=== PATIENT | female | born 2000 | race African-American/Black ===

== ENCOUNTER 2019-08-29 20:51 | Emergency (ER) | payer SELFPAY ==
[~2019-08-29] VITALS: Ht 165.1 cm; Wt 61.2 kg
--- OUTSIDE RECORDS SUMMARY | 2019-08-29 20:53 | XMS REPORT | Summary of Care ---
Author Author [facility] Organization [facility] Address Unknown Phone Unavailable Encounter VITO Dietrich(JONNA) [id number] Date(s): 06/06/16 - 06/06/16 [facility] [address] [place] [address]- Discharge Diagnosis: False labor Discharge Disposition: Home or Self Care Attending Physician: Maryellen English MD Vital Signs Most recent to 1 2 oldest [Reference Range]: Height 165.1 cm (06/06/16 9:31 PM) Blood Pressure 110/66 mmHg 110/66 mmHg [90-140/60-90 mmHg] (06/06/16 9:31 PM) (06/06/16 9:16 PM) Respiratory Rate 19 BRMIN 19 BRMIN [14-20 BRMIN] (06/06/16 9:31 PM) (06/06/16 9:16 PM) Peripheral Pulse 97 bpm 85 bpm Rate [60-100 bpm] (06/06/16 9:31 PM) (06/06/16 9:16 PM) Weight 54.545 kg (06/06/16 9:31 PM) Body Mass Index 20.01 m2 (06/06/16 9:31 PM) Problem List Condition Effective Dates Status Health Status Informan t Anxiety(Confirmed) Resolved Placenta 2017 Active previa(Confirmed) (Confirmed) Active ( ) 12/17/15 Active Allergies, Adverse Reactions, Alerts Substance Reaction Severity Status NKDA Active Medications Lactated Ringers (Bolus) IV 1,000 mL, 1,000 ml/hr, Infuse Over: 1 hr, Route: IV, 1,000, Drug form: INJ, ONCE , Priority: STAT, Dosing Weight 54.545 kg, Start date: 06/06/16 21:49:00 FIXTURE DESIGNER, Du ration: 1 doses or times, Stop date: 06/06/16 21:49:00 FIXTURE DESIGNER Start Date: 06/06/16 Stop Date: 06/06/16 Status: Completed Results BLOOD BANK RESULTS Most recent to 1 oldest [Reference Range]: ABO/Rh A POS *Unknown* (06/06/16 10:09 PM) Antibody Scrn Negative (06/06/16 10:09 PM) ELECTROLYTES Most recent to 1 oldest [Reference Range]: Sodium Lvl [135-145 140 mEq/L mEq/L] (06/06/16 10:09 PM) Potassium Lvl 3.6 mEq/L [3.5-5.1 mEq/L] (06/06/16 10:09 PM) Chloride Lvl [95-109 109 mEq/L mEq/L] (06/06/16 10:09 PM) CO2 [24-32 mEq/L] 22 mEq/L *LOW* (06/06/16 10:09 PM) AGAP [10.0-20.0 12.6 mEq/L mEq/L] (06/06/16 10:09 PM) CHEM PANEL Most recent to 1 oldest [Reference Range]: Creatinine Lvl 0.50 mg/dL [0.50-1.40 mg/dL] (06/06/16 10:09 PM) eGFR 163 mL/min/1.73m2 1 *NA* (06/06/16 10:09 PM) BUN [7-22 mg/dL] 6 mg/dL *LOW* (06/06/16 10:09 PM) B/C Ratio [6-25] 12 (06/06/16 10:09 PM) Glucose Lvl [70-99 92 mg/dL mg/dL] (06/06/16 10:09 PM) Total Protein 6.5 g/dL [6.4-8.4 g/dL] (06/06/16 10:09 PM) Albumin Lvl [3.5-5.0 2.8 g/dL g/dL] *LOW* (06/06/16 10:09 PM) Globulin [2.7-4.2 3.7 g/dL g/dL] (06/06/16 10:09 PM) A/G Ratio [0.7-1.6] 0.8 (06/06/16 10:09 PM) Calcium Lvl 8.4 mg/dL [8.5-10.5 mg/dL] *LOW* (06/06/16 10:09 PM) ALT [0-65 unit/L] 16 unit/L (06/06/16 10:09 PM) AST [0-37 unit/L] 21 unit/L (06/06/16 10:09 PM) Alk Phos [39-136 58 unit/L unit/L] (06/06/16 10:09 PM) Bili Total [0.2-1.3 0.2 mg/dL mg/dL] (06/06/16 10:09 PM) 1Result Comment: The eGFR is calculated using the CKD-EPI formula. In most young, healthy individuals the eGFR will be >90 mL/min/1.73m2. The eGFR declines with age. An eGFR of 60-89 may be normal in some populations, particularly the elderly, for whom the CKD-EPI formula has not been extensively validated. Use of the eGFR is not recommended in the following populations: Individuals with unstable creatinine concentrations, including patients and those with serious co-morbid conditions. Patients with extremes in muscle mass or diet. The data above are obtained from the National Kidney Disease Education Program ( NKDEP) which additionally recommends that when the eGFR is used in patients with extremes of body mass index for purposes of drug dosing, the eGFR should be mul tiplied by the estimated BMI. URINE AND STOOL Most recent to 1 oldest [Reference Range]: UA Turbidity [Clear] Moderate *ABN* (06/06/16 9:31 PM) UA Color [Yellow] Light Yellow *NA* (06/06/16 9:31 PM) UA pH [5.0-8.0] 7.0 (06/06/16 9:31 PM) UA Spec Grav 1.018 [<=1.030] (06/06/16 9:31 PM) UA Glucose [Negative Negative mg/dL mg/dL] *NA* (06/06/16 9:31 PM) UA Blood [Negative] Negative (06/06/16 9:31 PM) UA Ketones [Negative Negative mg/dL mg/dL] *NA* (06/06/16 9:31 PM) UA Protein [Negative Negative mg/dL mg/dL] (06/06/16 9:31 PM) UA Urobilinogen <=1.0 mg/dL [0.1-1.0 mg/dL] *NA* (06/06/16 9:31 PM) UA Bili [Negative] Negative *NA* (06/06/16 9:31 PM) UA Leuk Est Moderate [Negative] *ABN* (06/06/16 9:31 PM) UA Nitrite Negative [Negative] (06/06/16 9:31 PM) UA WBC [0-5 /HPF] 4 /HPF (06/06/16 9:31 PM) UA RBC [0-2 /HPF] 1 /HPF (06/06/16 9:31 PM) UA Bacteria [None Occasional /HPF Seen /HPF] *NA* (06/06/16 9:31 PM) UA Sq Epi [Few /LPF] Moderate /LPF *ABN* (06/06/16 9:31 PM) UA Mucus [None Seen Few /LPF /LPF] *NA* (06/06/16 9:31 PM) HEMATOLOGY Most recent to 1 oldest [Reference Range]: WBC [3.7-10.4 K/CMM] 6.2 K/CMM (06/06/16 10:09 PM) RBC [4.20-5.40 3.47 M/CMM M/CMM] *LOW* (06/06/16 10:09 PM) Hgb [12.0-16.0 g/dL] 10.6 g/dL *LOW* (06/06/16 10:09 PM) Hct [36.0-48.0 %] 31.1 % *LOW* (06/06/16 10:09 PM) MCV [80.0-98.0 fL] 89.6 fL (06/06/16 10:09 PM) MCH [27.0-31.0 pg] 30.6 pg (06/06/16 10:09 PM) MCHC [32.0-36.0 34.1 g/dL g/dL] (06/06/16 10:09 PM) RDW [11.5-14.5 %] 14.1 % (06/06/16 10:09 PM) Platelet [133-450 229 K/CMM K/CMM] (06/06/16 10:09 PM) MPV [7.4-10.4 fL] 8.3 fL (06/06/16 10:09 PM) Segs [45.0-75.0 %] 52.0 % (06/06/16 10:09 PM) Lymphocytes 34.1 % [20.0-40.0 %] (06/06/16 10:09 PM) Monocytes [2.0-12.0 9.1 % %] (06/06/16 10:09 PM) Eosinophils [0.0-4.0 4.2 % %] *HI* (06/06/16 10:09 PM) Basophils [0.0-1.0 0.6 % %] (06/06/16 10:09 PM) Segs-Bands # 3.2 K/CMM [1.5-8.1 K/CMM] (06/06/16 10:09 PM) Lymphocytes # 2.1 K/CMM [1.0-5.5 K/CMM] (06/06/16 10:09 PM) Monocytes # [0.0-0.8 0.6 K/CMM K/CMM] (06/06/16 10:09 PM) Eosinophils # 0.3 K/CMM [0.0-0.5 K/CMM] (06/06/16 10:09 PM) Basophils # [0.0-0.2 0.0 K/CMM K/CMM] (06/06/16 10:09 PM) Immunizations No data available for this section Procedures No data available for this section Social History Social History Type Response Substance Abuse Use: None. Sexual Sexually active: Yes. Employment/School Status: Student. Alcohol Never Smoking Status Never smoker; Ready to [employer] ge: No; Concerns about tobacco use in household: No; Exposure to Tobacco Smoke None; Cig arette Smoking Last 365 Days No; Reg Smoking Cessation Counseling No Assessment and Plan No data available for this section
--- OUTSIDE RECORDS SUMMARY | 2019-08-29 20:53 | XMS REPORT | Summary of Care ---
Author Author [facility] Organization [facility] Address Unknown Phone Unavailable Encounter VITO Dietrich(JONNA) [id number] Date(s): 12/26/16 - 12/26/16 [facility] [address] [place] [address]- Discharge Diagnosis: Abdominal pain of unknown etiology Discharge Disposition: Home or Self Care Attending Physician: Benoit Jennings MD Vital Signs 1 2 3 Most recent to oldest [Reference Range]: 165.1 cm (12/26/16 1:33 PM) Height 98.2 DegF (12/26/16 4:29 PM) 98.1 DegF (12/26/16 3:43 PM) 100.0 DegF *HI* (12/26/16 1:33 PM) Temperature Oral [96.4-99.1 DegF] 103/74 mmHg (12/26/16 4:29 PM) 104/70 mmHg (12/26/16 3:43 PM) 106/67 mmHg (12/26/16 2:30 PM) Blood Pressure [90-140/60-90 mmHg] 18 BRMIN (12/26/16 4:29 PM) 18 BRMIN (12/26/16 3:43 PM) 18 BRMIN (12/26/16 2:30 PM) Respiratory Rate [14-20 BRMIN] 99 bpm (12/26/16 1:33 PM) Peripheral Pulse Rate [60-100 bpm] 53.267 kg (12/26/16 1:33 PM) Weight 19.54 m2 (12/26/16 1:33 PM) Body Mass Index Problem List Condition Effective Dates Status Health Status Informan t Anxiety(Confirmed) Resolved Placenta 2017 Active previa(Confirmed) (Confirmed) Active ( ) 12/17/15 - 10/30/16 Resolved 9:47 AM Allergies, Adverse Reactions, Alerts Substance Reaction Severity Status NKDA Active Medications metoclopramide 10 mg, 2 mL, Route: IVP, Drug form: INJ, ONCE, Dosing Weight 54.545, kg, Priorit y: STAT, Start date: 12/26/16 13:38:00 CDT, Stop date: 12/26/16 13:38:00 CDT Notes: (Same as: Reglan) Start Date: 12/26/16 Stop Date: 12/26/16 Status: Completed Saline Flush 0.9% 10 mL, Route: IVP, Drug Form: INJ, Dosing Weight 54.545, kg, PRN, PRN Line Flush , Start date: 12/26/16 13:38:00 CDT, Duration: 30 day, Stop date: 01/25/17 13:37 :00 CDT Notes: (Same as: BD Posiflush) Start Date: 12/26/16 Stop Date: 12/26/16 Status: Discontinued Sodium Chloride 0.9% (Bolus) IV 1,000 mL, 2,000 ml/hr, Infuse Over: 30 minutes, Route: IV, 1,000, Drug form: INJ , ONCE, Priority: STAT, Dosing Weight 54.545 kg, Start date: 12/26/16 13:38:00 C DT, Duration: 1 doses or times, Stop date: 12/26/16 13:38:00 CDT Start Date: 12/26/16 Stop Date: 12/26/16 Status: Completed Tylenol 650 mg, 2 tab, Route: PO, Drug form: TAB, ONCE, Dosing Weight 54.545, kg, Priori ty: STAT, Start date: 12/26/16 13:39:00 CDT, Stop date: 12/26/16 13:39:00 CDT Notes: Do not exceed 4 gm/day. (Same as: Tylenol) Start Date: 12/26/16 Stop Date: 12/26/16 Status: Completed Results ELECTROLYTES Most recent to 1 oldest [Reference Range]: Sodium Lvl [135-145 137 mEq/L mEq/L] (12/26/16 2:17 PM) Potassium Lvl 3.5 mEq/L [3.5-5.1 mEq/L] (12/26/16 2:17 PM) Chloride Lvl [95-109 106 mEq/L mEq/L] (12/26/16 2:17 PM) CO2 [24-32 mEq/L] 24 mEq/L (12/26/16 2:17 PM) AGAP [10.0-20.0 10.5 mEq/L mEq/L] (12/26/16 2:17 PM) CHEM PANEL Most recent to 1 oldest [Reference Range]: Creatinine Lvl 0.61 mg/dL [0.50-1.40 mg/dL] (12/26/16 2:17 PM) eGFR 153 mL/min/1.73m2 1 *NA* (12/26/16 2:17 PM) BUN [7-22 mg/dL] 14 mg/dL (12/26/16 2:17 PM) B/C Ratio [6-25] 23 (12/26/16 2:17 PM) Glucose Lvl [70-99 85 mg/dL mg/dL] (12/26/16 2:17 PM) Total Protein 7.2 g/dL [6.4-8.4 g/dL] (12/26/16 2:17 PM) Albumin Lvl [3.5-5.0 3.4 g/dL g/dL] *LOW* (12/26/16 2:17 PM) Globulin [2.7-4.2 3.8 g/dL g/dL] (12/26/16 2:17 PM) A/G Ratio [0.7-1.6] 0.9 (12/26/16 2:17 PM) Calcium Lvl 8.5 mg/dL [8.5-10.5 mg/dL] (12/26/16 2:17 PM) ALT [0-65 unit/L] 9 unit/L (12/26/16 2:17 PM) AST [0-37 unit/L] 11 unit/L (12/26/16 2:17 PM) Alk Phos [39-136 75 unit/L unit/L] (12/26/16 2:17 PM) Bili Total [0.2-1.3 0.5 mg/dL mg/dL] (12/26/16 2:17 PM) 1Result Comment: The eGFR is calculated [...] be mul tiplied by the estimated BMI. ENDOCRINOLOGY Most recent to 1 oldest [Reference Range]: S Preg [Negative] Negative *NA* (12/26/16 2:17 PM) URINE AND STOOL Most recent to 1 oldest [Reference Range]: UA Turbidity [Clear] Clear (12/26/16 2:17 PM) UA Color [Yellow] Yellow *NA* (12/26/16 2:17 PM) UA pH [5.0-8.0] 6.0 (12/26/16 2:17 PM) UA Spec Grav 1.025 [<=1.030] (12/26/16 2:17 PM) UA Glucose [Negative Negative mg/dL mg/dL] *NA* (12/26/16 2:17 PM) UA Blood [Negative] Negative (12/26/16 2:17 PM) UA Ketones [Negative Negative mg/dL mg/dL] *NA* (12/26/16 2:17 PM) UA Protein [Negative Negative mg/dL mg/dL] (12/26/16 2:17 PM) UA Urobilinogen <=1.0 mg/dL [0.1-1.0 mg/dL] *NA* (12/26/16 2:17 PM) UA Bili [Negative] Negative *NA* (12/26/16 2:17 PM) UA Leuk Est Negative [Negative] (12/26/16 2:17 PM) UA Nitrite Negative [Negative] (12/26/16 2:17 PM) UA WBC [0-5 /HPF] <1 /HPF (12/26/16 2:17 PM) UA RBC [0-2 /HPF] 2 /HPF (12/26/16 2:17 PM) UA Sq Epi [Few /LPF] Occasional /LPF *NA* (12/26/16 2:17 PM) UA Mucus [None Seen Few /LPF /LPF] *NA* (12/26/16 2:17 PM) HEMATOLOGY Most recent to 1 oldest [Reference Range]: WBC [3.7-10.4 K/CMM] 9.2 K/CMM (12/26/16 2:17 PM) RBC [4.20-5.40 4.26 M/CMM M/CMM] (12/26/16 2:17 PM) Hgb [12.0-16.0 g/dL] 12.3 g/dL (12/26/16 2:17 PM) Hct [36.0-48.0 %] 36.5 % (12/26/16 2:17 PM) MCV [80.0-98.0 fL] 85.7 fL (12/26/16 2:17 PM) MCH [27.0-31.0 pg] 28.9 pg (12/26/16 2:17 PM) MCHC [32.0-36.0 33.7 g/dL g/dL] (12/26/16 2:17 PM) RDW [11.5-14.5 %] 16.1 % *HI* (12/26/16 2:17 PM) Platelet [133-450 235 K/CMM K/CMM] (12/26/16 2:17 PM) MPV [7.4-10.4 fL] 8.5 fL (12/26/16 2:17 PM) Segs [45.0-75.0 %] 69.1 % (12/26/16 2:17 PM) Lymphocytes 16.7 % [20.0-40.0 %] *LOW* (12/26/16 2:17 PM) Monocytes [2.0-12.0 11.6 % %] (12/26/16 2:17 PM) Eosinophils [0.0-4.0 2.1 % %] (12/26/16 2:17 PM) Basophils [0.0-1.0 0.5 % %] (12/26/16 2:17 PM) Segs-Bands # 6.3 K/CMM [1.5-8.1 K/CMM] (12/26/16 2:17 PM) Lymphocytes # 1.5 K/CMM [1.0-5.5 K/CMM] (12/26/16 2:17 PM) Monocytes # [0.0-0.8 1.1 K/CMM K/CMM] *HI* (12/26/16 2:17 PM) Eosinophils # 0.2 K/CMM [0.0-0.5 K/CMM] (12/26/16 2:17 PM) Immunizations No data available for this [...]
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
--- OUTSIDE RECORDS SUMMARY | 2019-08-29 20:53 | XMS REPORT ---
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 *NA*(12/26/16 2:17 PM)[facility] HospitalUjkfnmcxrLGFJUTGNLC5618-34-93 19:17:0033.7[facility] HospitalWexhwmjiqPCSKZIMCRB3543-67-17 19:17:00* Test Item Value Reference Range Interpretation Comments [facility] (test code = MCH) 28.9 pg 27.0-31.0 YzwbuwjixPKSRFAUXJS7882-60-91 19:17:0085.7 LyztdnihsMTLRMOUVSR1240-09-25 19:17:0016.1M XibccjcniHTSJHBKLBS3619-01-11 19:17:0036.5 [facility] 2016-12-26 19:17:15624JM WpymcyknxSRHXEDBLAW6035-05-64 19:17:008.5[facility] PBAVGDAQFB1667-97-94 19:17:009.2M XabooecbtRUYPKJQFQX4207-54-99 19:17:0012.3M JxxvfgpwiZZNTWPDHOF6348-88-59 19:17:004.26 GecbtzakwEYHWVJESFP4435-63-49 19:17:000.5 QenyesnwxRSBLNQMFKW3167-73-22 19:17:001.[facility] 2016-12-26 19:17:001.5 XhhxjnqtgSICBWTAARJ7186-49-47 19:17:006.3[facility] HHXTDHAQMB0878-34-49 19:17:002.1M WpianernnVZSZYWKHUK0209-26-57 19:17:000.2M TkjpwjjvrHRTWBBQTUV5703-42-25 19:17:0016.7 ZxkxxtvonCPCXRLPBKT6459-19-22 19:17:0069.[facility] ZrhmxbzuyGUNLXPSUZM1495-60-60 19:17:0011.6M [facility] UPRJP4334-10-19 19:17:002 [facility] KGQBW9131-27-69 19:17:00<1M [facility] QJHMU8985-15-63 19:17:00Negative (12/26/16 2:17 PM) [facility] CEGYU4623-09-28 19:17:00Yellow *NA*(12/26/16 2:17 PM) [facility] EJRAH9496-07-64 19:17:00Clear (12/26/16 2:17 PM) [facility] ZBTRB6165-08-35 19:17:006.0 [facility] GHMOD3050-82-30 19:17:001.025 [facility] SQBLP0833-87-27 19:17:00Negative *NA*(12/26/16 2:17 PM) [facility] TAJWW7129-73-68 19:17:00Negative (12/26/16 2:17 PM) [facility] EMGQP7967-35-32 19:17:00Negative (12/26/16 2:17 PM)[facility] DWLRIKU3236-00-39 04:09:00Negative (06/06/16 10:09 PM) [facility] FQMLG2577-67-18 04:09:003.7 [facility] YHCEQ8220-71-65 04:09:0012 [facility] VBAAD0561-64-33 04:09:0012.6M [facility] PANEL 2016-06-07 04:09:000.8 [facility] JCFLS2694-47-74 04:09:21059DR [facility] SENVE7276-51-27 04:09:0058 [facility] WEWFI2832-81-13 04:09:000.2M [facility] XXAKP1493-48-09 04:09:60522ZP [facility] YNITO1494-80-81 04:09:003.6M [facility] XWPLY7775-15-03 04:09:63169VA [facility] PANEL 2016-06-07 04:09:0022MH [facility] POBQE6847-93-45 04:09:000.50 [facility] NUJTJ7910-98-69 04:09:0016 [facility] LWFXP9161-42-83 04:09:002.8 [facility] UXOUA4078-53-84 04:09:006.5 [facility] PXFPD8807-94-06 04:09:0021MH [facility] QBVEN1167-29-42 04:09:008.4 [facility] PANEL 2016-06-07 04:09:0092 [facility] BCIDN2123-47-55 04:09:006MH [facility] XCDVBYIWBU3884-30-82 04:09:003.2M AyglzwbuyIIKGONONOM1992-88-08 04:09:0052.0 FhhyjgnwvZHLHXSWOAB2153-12-21 04:09:0034.1M DhpehhoqvNPLKGTUTRF7181-75-89 04:09:004.2M AacrshswuNZNLYGSKKG9543-76-54 04:09:000.6M [facility] 2016-06-07 04:09:009.1M BazhoxmmdJKCJOYWXWJ8035-43-57 04:09:000.6MH [facility] FYZDNIVIVH6660-55-03 04:09:000.3ME[facility] CenterFaediclbjHXSVRROKSA2415-59-62 04:09:002.1ME[facility] CenterBxtqoesjjMEUNIZFXRN6792-51-21 04:09:000.0[facility] CenterXbtxbpulhOKRRKYWZVN2604-97-70 04:09:0031.1ME[facility] CenterYqapvvwkyJJNIQSGMCO1007-58-20 04:09:0089.6[facility] CenterHEMATOLOGY 2016-06-07 04:09:0010.6MEden [facility] CenterYvllodrayVQHZQQULHG3119-43-73 04:09:008.3[facility] HNATXIJKXD0068-82-28 04:09:84123LLSan [facility]on Regional Medical CenterLaqtiddxwOOFLSKKNGO5732-23-15 04:09:0034.1MEden [facility] CenterSdrbezqulMJYWLMEOAH9134-17-22 04:09:00* Test Item Value Reference Range Interpretation Comments [facility] (test code = MCH) 30.6 pg 27.0-31.0 [facility] CenterSfrdlwijmWKOUCKFAJV4724-96-51 04:09:0014.1MEden [facility] CenterKmmrthmjhYKPFASTYZB3684-13-53 04:09:006.2MEden [facility] CenterOzlnpsczhLAXAEVVTEF8197-80-93 04:09:003.47 [facility] UFFKE0232-53-28 03:31:00<=1.0MH [facility] LKNXI3421-70-66 03:31:001 [facility] TRSBO7905-15-09 03:31:001.018 [facility] STOOL 2016-06-07 03:31:007.0 [facility] PXGVJ6832-41-09 03:31:00Moderate *ABN*(06/06/16 9:31 PM) [facility] NQOBE0898-24-83 03:31:00Light Yellow *NA*(06/06/16 9:31 PM) [facility] HVXRI8264-17-86 03:31:00Negative (06/06/16 9:31 PM) [facility] AERYC1597-05-97 03:31:00Moderate *ABN*(06/06/16 9:31 PM) [facility] ABPTH8096-21-21 03:31:004 [facility] XWGHK7595-72-28 03:31:00Negative (06/06/16 9:31 PM) [facility] QUOGD3674-17-59 03:31:00Negative *NA*(06/06/16 9:31 PM)LYNETTE [facility] CHEM 2015-09-23 21:06:00Negative (09/23/15 4:06 PM)[facility]
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
--- NOTE | 2019-08-29 21:42 | Emergency Department Note ---
History of Present Illnes History of Present Illness Chief Complaint: Abdominal Complaints History of Present Illness This is a 19 year old female PRESENTS TO THE ER C/O SUPRAPUBIC ABD PAIN RADIATING TO LLQ ONSET THIS AFTERNOON AROUND 1500; PT ALSO REPORTS URINARY FREQUENCY AND HEMATURIA ONSET X2 HRS DISABILITY REPRESENTATIVE; PT STATES SHE WAS AT HOSPITAL LAST WEEK AND TOLD THERE WAS NOTHING WRONG AND PRESCRIBED TORADOL. Historian: Patient Arrival Mode: Car Onset (how long ago): hour(s) (6) Location: suprapubic Quality: pain suprapubic, dysuria and frequency Radiation: non-radiation Severity: moderate Onset quality: sudden Duration (how long): hour(s) (6) Timing of current episode: constant Progression: unchanged Chronicity: new Context: recent illness Relieving factors: none Exacerbating factors: other (urination) Associated symptoms: denies other symptoms Past Medical/Family History Physician Review I have reviewed the patient's past medical and family history. Any updates have been documented here. Past Medical History Recent Fever: No Clinical Suspicion of Infectio: No New/Unexplained Change in Ment: No Past Medical History: Anxiety, Depression, Other Mental Illness Other Medical History: BIPOLAR Social History Smoking Cessation: Never Smoker Alcohol Use: None Any Illegal Drug Use: No Other Last Tetanus: UTD Review of Systems Review of Systems Constitutional: no symptoms EENTM: no symptoms Cardiovascular: no symptoms Respiratory: no symptoms Gastrointestinal: no symptoms Genitourinary: as per HPI Musculoskeletal: no symptoms Neurological: no symptoms Psychological: no symptoms Endocrine: no symptoms Hematological/Lymphatic: no symptoms Review of other systems All other systems reviewed and negative. Physical Exam Related Data Allergies: Coded Allergies: No Known Allergies (Unverified , 08/29/19) Triage Vital Signs Vital Signs Date Time Temp Pulse Resp B/P (MAP) Pulse Ox O2 Delivery O2 Flow Rate FiO2 08/29/19 21:22 99.4 91 20 112/87 100 Vital signs reviewed: Yes Physical Exam CONSTITUTIONAL Constitutional: well-developed, well-nourished HENT HENT: normocephalic, atraumatic, oropharynx clear/moist, nose normal HENT L/R: left ext ear normal, right ext ear normal EYES Eyes: PERRL, conjunctivae normal NECK Neck: ROM normal PULMONARY Pulmonary: effort normal, breath sounds normal CARDIOVASCULAR Cardiovascular: regular rhythm, heart sounds normal, capillary refill normal, normal rate GASTROINTESTINAL Abdominal: soft, bowel sounds normal, tender (mild supra pubic) GENITOURINARY Genitourinary: exam deferred SKIN Skin: warm, dry MUSCULOSKELETAL Musculoskeletal: ROM normal NEUROLOGICAL Neurological: alert, oriented x 3, no gross motor or sensory deficits PSYCHOLOGICAL Psychological: mood/affect normal, judgement normal Results Laboratory Laboratory Laboratory Tests Test 08/29/19 21:32 Urine Color Yellow (YELLOW) Urine Clarity Hazy (CLEAR) Urine pH 6 (5 - 7) Urine Specific [place] 1.030 (1.010-1.025) Urine Protein >=300 (NEGATIVE) Urine Glucose (UA) Negative (NEGATIVE) Urine Ketones Negative (NEGATIVE) Urine Blood Large (NEGATIVE) Urine Nitrite Negative (NEGATIVE) Urine Bilirubin Negative (NEGATIVE) Urine Urobilinogen 0.2 mg/dL (0.2 - 1) Urine Leukocyte Esterase Moderate (NEGATIVE) Urine RBC 21-50 /HPF (0-5) Urine WBC 11-20 /HPF (0-5) Urine Epithelial Cells None /LPF (NONE) Urine Bacteria Many /HPF (NONE) Urine Test Negative (NEGATIVE) Lab results reviewed: Yes Critical Care Time Subsequent provider I assumed direction of critical care for this patient from another provider of my specialty. Assessment & Plan Assessment & Plan Final Impression: (1) UTI (urinary tract infection) Assessment & Plan pt with suprapubic pain and urinary symptoms, ua ordered to eval for uti toradol 60 mg im ordered pt found to have uti omnicef 300 mg po bid for 1 days pyridium 200 mg po tid #9 Last Vital Signs Date Time Temp Pulse Resp B/P (MAP) Pulse Ox O2 Delivery O2 Flow Rate FiO2 08/29/19 21:22 99.4 91 20 112/87 100 EDWINA HSU MD August 29, 2019 21:42
[2019-08-29] MEDS ORDERED: KETOROLAC TROMETHAMINE 60 MG/2 ML VIAL IM ONE (21:45)
[2019-08-29 21:52] LABS: BILIRUBIN,URINE NEGATIVE (NEGATIVE); CLARITY,URINE HAZY (CLEAR); COLOR,URINE YELLOW (YELLOW); KETONES,URINE NEGATIVE (NEGATIVE); LEUKOCYTE ESTERASE ,URINE MODERATE (NEGATIVE); NITRITE,URINE NEGATIVE (NEGATIVE); PREGNANCY TEST, URINE NEGATIVE (NEGATIVE); PROTEIN,URINE DIPSTICK >=300 (NEGATIVE); URINE UROBILINOGEN 0.2 mg/dL (0.2 - 1)
[2019-08-29 22:10] LABS: BACTERIA,URINE MANY /HPF; RBC,URINE 21-50 /HPF (0-5)
== END 2019-08-29 23:01 | disposition home or self-care (01) ==
LOC: ER 20:51
DX: R10.32 Left lower quadrant pain (principal); R30.0 Dysuria; R31.9 Hematuria, unspecified; N39.0 Urinary tract infection, site not specified; F41.9 Anxiety disorder, unspecified; F31.9 Bipolar disorder, unspecified
CPT/HCPCS: 81001; 81025; 96372; 99283; J1885

== ENCOUNTER 2020-03-18 04:47 | Observation (INO) | payer SELFPAY ==
[~2020-03-18] VITALS: Ht 165.1 cm; Wt 59.9 kg
[2020-03-18] MEDS ORDERED: ACETAMINOPHEN 325 MG TAB PO STA (05:21)
[2020-03-18] MEDS ORDERED: SODIUM CHLORIDE 0.9% 1000ML 1,000 ML ONE (05:22)
[2020-03-18] MEDS: SODIUM CHLORIDE 0.9% 1000ML 1,000 ML IV SCH ×2 (05:25→12:27)
[2020-03-18 05:49] LABS: BASOPHILS # (AUTO) 0.1 (0.0-0.1); BASOPHILS % 0.4 % (0.0-1.0); HEMATOCRIT 37.3 % (34.2-44.1); HEMOGLOBIN 12.6 g/dL (12.0-16.0); LYMPHOCYTES # (AUTO) 2.3 (1.0-3.2); LYMPHOCYTES % 17.4 % (18.0-39.1); MEAN CORPUSCULAR HEMOGLOBIN 29.5 pg (28-32); MEAN CORPUSCULAR HGB CONC 33.8 g/dL (31-35); MEAN CORPUSCULAR VOLUME 87.4 fL (81-99); MONOCYTES # (AUTO) 1.5 (0.2-0.8); MONOCYTES % 11.4 % (4.4-11.3); NEUTROPHILS # (AUTO) 9.2 (2.1-6.9); NEUTROPHILS % 70.3 % (38.7-80.0); PLATELET COUNT 239 x10e3/uL (140-360); RED BLOOD COUNT 4.27 x10e6/uL (3.6-5.1); RED CELL DISTRIBUTION WIDTH 13.1 % (11.7-14.4)
[2020-03-18 06:18] LABS: ALANINE AMINOTRANSFERASE 59 IU/L (0-55); ALKALINE PHOSPHATASE 66 IU/L (40-150); ANION GAP 17.2 mmol/L (8-16); BLOOD UREA NITROGEN 9 mg/dL (7-26); BUN/CREATININE RATIO 11 (6-25); CALCIUM 9.4 mg/dL (8.4-10.2); CARBON DIOXIDE 17 mmol/L (22-29); CHLORIDE 105 mmol/L (98-107); CREATININE, SERUM 0.83 mg/dL (0.57-1.11); EST GLOMERULAR FILTRATION RATE > 60 ML/MIN (60-); GLUCOSE 148 mg/dL (74-118); POTASSIUM 3.2 mmol/L (3.5-5.1); SODIUM 136 mmol/L (136-145)
[2020-03-18 06:19] LABS: ALBUMIN/GLOBULIN RATIO 0.1 (0.8-2.0)
[2020-03-18 06:40] LABS: ALBUMIN 3.7 g/dL (3.5-5.0)
[2020-03-18 06:49] LABS: AMPHETAMINES SCREEN,URINE NEGATIVE (NEGATIVE); BENZODIAZEPINES SCREEN,URINE NEGATIVE (NEGATIVE); PHENCYCLIDINE SCREEN,URINE NEGATIVE (NEGATIVE)
[2020-03-18 06:54] LABS: CLARITY,URINE CLEAR (CLEAR); COLOR,URINE YELLOW (YELLOW); KETONES,URINE >=160 (NEGATIVE); LEUKOCYTE ESTERASE ,URINE NEGATIVE (NEGATIVE); NITRITE,URINE NEGATIVE (NEGATIVE); PROTEIN,URINE DIPSTICK 1+ (NEGATIVE); URINE UROBILINOGEN 8 mg/dL (0.2 - 1)
[2020-03-18 07:07] LABS: STREPTOCOCCUS GRP A ANTIGEN NEGATIVE (NEGATIVE)
[2020-03-18 07:10] LABS: EPITHELIAL CELLS,URINE MODERATE /LPF
[2020-03-18 07:11] LABS: BACTERIA,URINE FEW /HPF; RBC,URINE 0-5 /HPF (0-5)
[2020-03-18 07:29] LABS: INFLUENZAE A&B ANTIGEN (RAPID) NEGATIVE (NEGATIVE)
[2020-03-18] MEDS ORDERED: CEFTRIAXONE SOD 1 GM/NS 50 ML 50 ML IV ONE (07:45)
[2020-03-18 09:07] VITALS: BP 102/72
[2020-03-18 09:50] VITALS: BP 102/72
[2020-03-18 12:00] VITALS: BP 91/55
[2020-03-18 16:00] VITALS: BP 113/75
[2020-03-18] MEDS ORDERED: AZITHROMYCIN 250 MG TAB PO ONE (16:30)
[2020-03-18] MEDS: CHLORASEPTIC SPRAY 177 ML BTL MM PRN (17:28)
[2020-03-18 20:00] VITALS: BP 90/60
[2020-03-19] VITALS: BP 91/63
[2020-03-19 04:00] VITALS: BP 91/65
[2020-03-19] MEDS: CHLORASEPTIC SPRAY 177 ML BTL MM PRN (05:11)
[2020-03-19] MEDS: SODIUM CHLORIDE 0.9% 1000ML 1,000 ML IV SCH ×2 (05:11→15:49)
[2020-03-19 05:57] LABS: BASOPHILS % 0.5 % (0.0-1.0); EOSINOPHILS # (AUTO) 0.1 (0.0-0.4); EOSINOPHILS % 1.2 % (0.0-6.0); HEMATOCRIT 37.2 % (34.2-44.1); HEMOGLOBIN 12.3 g/dL (12.0-16.0); LYMPHOCYTES # (AUTO) 2.4 (1.0-3.2); LYMPHOCYTES % 30.4 % (18.0-39.1); MEAN CORPUSCULAR HEMOGLOBIN 29.3 pg (28-32); MEAN CORPUSCULAR HGB CONC 33.1 g/dL (31-35); MEAN CORPUSCULAR VOLUME 88.6 fL (81-99); MONOCYTES % 13.1 % (4.4-11.3); NEUTROPHILS # (AUTO) 4.2 (2.1-6.9); NEUTROPHILS % 54.5 % (38.7-80.0); PLATELET COUNT 227 x10e3/uL (140-360); RED CELL DISTRIBUTION WIDTH 12.7 % (11.7-14.4)
[2020-03-19 06:14] LABS: ANION GAP 13.7 mmol/L (8-16); BLOOD UREA NITROGEN 8 mg/dL (7-26); BUN/CREATININE RATIO 11 (6-25); CARBON DIOXIDE 22 mmol/L (22-29); CHLORIDE 107 mmol/L (98-107); CREATININE, SERUM 0.75 mg/dL (0.57-1.11); EST GLOMERULAR FILTRATION RATE > 60 ML/MIN (60-); GLUCOSE 90 mg/dL (74-118); POTASSIUM 3.7 mmol/L (3.5-5.1); SODIUM 139 mmol/L (136-145)
[2020-03-19 08:40] VITALS: BP 94/72
[2020-03-19 08:45] VITALS: BP 94/72
[2020-03-19 12:53] VITALS: BP 104/71
[2020-03-19 14:33] LABS: FREE T4 (FREE THYROXINE) 1.07 ng/dL (0.8-1.8); THYROID STIMULATING HORMONE 0.889 uIU/mL (0.350-4.940)
[2020-03-19] MEDS ORDERED: AZITHROMYCIN 250 MG TAB PO SCH (16:30)
[2020-03-19 17:03] VITALS: BP 106/69
[2020-03-19] MEDS: METOPROLOL TARTRATE 25 MG TAB PO SCH (17:12)
== END 2020-03-19 18:22 | disposition home or self-care (01) ==
LOC: ER 05:19 → ERHOLD 07:52 → MED/SURG3 08:47
PROVIDERS: ADMIT Internal Medicine; ATTEND Internal Medicine
DX: J06.0 Acute laryngopharyngitis (principal); Z20.828 Contact with and (suspected) exposure to other viral communicable diseases; R00.0 Tachycardia, unspecified; F31.9 Bipolar disorder, unspecified; F41.9 Anxiety disorder, unspecified; A41.9 Sepsis, unspecified organism
CPT/HCPCS: 36415 ×2; 71045; 80048; 80053; 80307; 81001; 83518; 83605; 83880; 84439; 84443 ×2; 84481; 84484; 84702; 85025 ×2; 85379; 86376; 87040; 87070; 87086; 87400; 93005; 93306; 99284; G0378 ×2; J0696; J7030 ×2; U0002

== ENCOUNTER 2020-05-25 19:51 | Emergency (ER) | payer SELFPAY ==
[~2020-05-25] VITALS: Ht 165.1 cm; Wt 59.9 kg
[2020-05-25] MEDS ORDERED: KETOROLAC TROMETHAMINE 60 MG/2 ML VIAL IM ONE ×2 (20:45)
== END 2020-05-25 21:05 | disposition home or self-care (01) ==
LOC: ER 20:01
DX: R51.9 Headache, unspecified (principal); R07.89 Other chest pain; F31.9 Bipolar disorder, unspecified; E05.90 Thyrotoxicosis, unspecified without thyrotoxic crisis or storm
CPT/HCPCS: 70450; 93005; 99283; J1885

== ENCOUNTER → 2020-06-17 | Emergency (ER) | payer SELFPAY ==
[~2020-06-17] VITALS: Ht 165.1 cm; Wt 59.9 kg
[~2020-06-17] MED LIST: DIPHENHYDRAMINE HCL 25 MG CAP PO ONE; KETOROLAC TROMETHAMINE 30 MG/ML VIAL IV STA; METOCLOPRAMIDE HCL 10 MG/2ML VIAL IV ONE; SODIUM CHLORIDE 0.9% 1000ML 1,000 ML IV SCH
== END | disposition home or self-care (01) ==
LOC: ER 01:32
DX: R51.9 Headache, unspecified (principal); F31.9 Bipolar disorder, unspecified
CPT/HCPCS: 99283; J1885; J2765; J7030